=== PATIENT | female | born 1985 | race Hispanic/Latino ===

== ENCOUNTER → 2023-08-19 09:00 | Outpatient (CLI) | payer OTHER, SELFPAY ==
[2023-08-19 09:59] LABS: Add Manual Diff / Slide Review NO; Basophils Absolute Auto 100 /uL (0-100); Basophils Percent Auto 0.8 % (0-2); Eosinophils Absolute Auto 200 /uL (0-450); Eosinophils Percent Auto 1.8 % (2-4); Hematocrit 39.5 % (36-46); Hemoglobin 12.9 g/dL (12.0-16.0); Lymphocytes Absolute Auto 2300 /uL (1100-4500); Lymphocytes Percent Auto 26.1 % (25-40); Mean Corpuscular HGB Conc 32.5 % (30-36); Mean Corpuscular Hemoglobin 26.3 PG (26-34); Mean Corpuscular Volume 80.7 fL (80-100); Monocytes Absolute Auto 600 /uL (0-900); Monocytes Percent Auto 6.5 % (3-14); Neutrophils Absolute Auto 5800 /uL (1500-7000); Neutrophils Percent Auto 64.8 % (50-75); Platelet Count 351 X10^3/uL (150-400); Red Cell Distribution Width 14.3 % (11.6-14.8); White Blood Cell Count 8.9 X10^3/uL (4.5-11.0)
[2023-08-19 10:10] LABS: Hemoglobin A1C% w Est Avg Glu 5.6 % (4.0-6.0)
[2023-08-19 10:15] LABS: HEMOLYSIS < 15 (0-50); Iron 80 ug/dL (37-170)
[2023-08-19 10:19] LABS: Alanine Aminotransferase 21 IU/L (<35); Albumin 4.4 g/dL (3.5-5.0); Albumin Globulin Ratio 1.2 (1.0-2.8); Alkaline Phosphatase 80 U/L (38-126); Aspartate Aminotransferase 21 IU/L (14-36); BUN Creatinine Ratio 19.7 (6-22); Bilirubin Total 0.5 mg/dL (0.2-1.3); Blood Urea Nitrogen 12 mg/dL (7-17); Calcium 9.2 mg/dL (8.4-10.2); Carbon Dioxide 27 mmol/L (22-32); Chloride 105 mmol/L (98-107); Cholesterol 130 mg/dL (140-199); Estimated Glomerular Filt Rate > 60 mL/min (>60); Globulin 3.6 g/dL (1.7-4.1); Glucose 87 mg/dL (70-100); HDL Cholesterol 37 mg/dL (40-60); HEMOLYSIS < 15 (0-50); LDL Cholesterol Calculated 74 mg/dL (<100); Potassium 3.9 mmol/L (3.4-5.1); Sodium 138 mmol/L (137-145); Triglycerides 95 mg/dL (35-150)
[2023-08-19 10:26] LABS: Percent Iron Saturation 23 % (15-50); Total Iron Binding Capacity 348 ug/dL (265-497); Transferrin 269 mg/dL (206-381)
== END ==
PROVIDERS: PCP Family Medicine; Referring Provider Family Medicine; Visit Provider Family Medicine
DX: Z00.00 Encounter for general adult medical examination without abnormal findings (principal); E66.01 Morbid (severe) obesity due to excess calories; R53.83 Other fatigue; Z87.59 Personal history of other complications of pregnancy, childbirth and the puerperium; Z63.79 Other stressful life events affecting family and household; Z13.220 Encounter for screening for lipoid disorders; G47.00 Insomnia, unspecified; N92.6 Irregular menstruation, unspecified; Z72.821 Inadequate sleep hygiene
CPT/HCPCS: 36415; 80053; 80061; 83036; 83540; 83550; 85025

== ENCOUNTER → 2023-08-24 11:38 | Outpatient (CLI) | payer OTHER, SELFPAY ==
--- NOTE | 2023-08-24 11:38 | DI.RAD.S_ITS ---
PROCEDURE: XR CHEST 2V INDICATIONS: cough TECHNIQUE: 2 views of the chest were acquired. COMPARISON: None. FINDINGS: Surgical changes and devices: None. Lungs and pleura: Lungs are clear. No pleural effusions or pneumothorax. Mediastinum: Mediastinal contours are normal. Heart size is normal. Bones and chest wall: No suspicious bony abnormalities. Soft tissues appear unremarkable. IMPRESSION: No acute cardiopulmonary pathology. Dictated by: Jean Paul Covarrubias M.D. on 08/24/2023 at 16:34 Approved by: Jean Paul Covarrubias M.D. on 08/24/2023 at 16:34
== END ==
PROVIDERS: PCP Family Medicine; Referring Provider Nurse Practitioner Family; Visit Provider Nurse Practitioner Family
DX: R05.9 Cough, unspecified (principal)
CPT/HCPCS: 71046

== ENCOUNTER → 2023-10-13 09:46 | Outpatient (CLI) | payer OTHER, SELFPAY ==
--- NOTE | 2023-10-13 09:47 | DI.RAD.S_ITS ---
PROCEDURE: FL BARIUM SWALLOW INDICATIONS: possible GERD; chest pain/pressure COMPARISON: [facility], CR, XR CHEST 2V, 08/24/2023, 10:45. FINDINGS: Function: There is normal esophageal peristalsis. No elicited gastroesophageal reflux. There is normal transit of a calibrated barium tablet through the esophagus into the stomach. Morphology: Air-contrast images demonstrate normal mucosal morphology. Single contrast views show no esophageal strictures, extrinsic mass effects, or diverticula. Limited images of the stomach demonstrate normal appearance. IMPRESSION: 1. Normal esophagram. No gastroesophageal reflux was elicited joint exam. Dictated by: Halina Barclay M.D. on 10/13/2023 at 14:41 Approved by: Halina Barclay M.D. on 10/13/2023 at 14:42
== END ==
LOC: RAD 09:47
PROVIDERS: PCP Family Medicine; Referring Provider Physician Assistant; Visit Provider Physician Assistant
DX: K21.9 Gastro-esophageal reflux disease without esophagitis (principal); R07.9 Chest pain, unspecified
CPT/HCPCS: 74220

== ENCOUNTER → 2023-11-16 09:22 | Outpatient (CLI) | payer OTHER, SELFPAY ==
--- NOTE | 2023-11-16 09:23 | DI.MG.S_ITS ---
BILATERAL DIGITAL SCREENING MAMMOGRAM 3D/2D WITH CAD: 11/16/2023 CLINICAL: Routine screening. Baseline exam. No prior exams were available for comparison. Both breasts are almost entirely fatty (category a/<25% glandular tissue). Current study was also evaluated with a Computer Aided Detection (CAD) system. No significant masses, calcifications, or other findings are seen in either breast. IMPRESSION: NEGATIVE There is no mammographic evidence of malignancy. A 1 year screening mammogram is recommended. Based on the Tyrer Cuzick model (a risk assessment model) the patient's lifetime risk is 7.5% and her 10 year risk is 0.9%. According to the ACR, ACS, and NCCN guidelines, an annual breast MRI exam along with mammogram is recommended if the patient's lifetime risk is 20% or greater. This exam was interpreted at Station ID: [id number]. NOTE: For mammograms, a report in lay terms will be sent to the patient. Approximately 15% of breast malignancies will not be visualized mammographically. In the management of a palpable breast mass, a negative mammogram must not discourage biopsy of a clinically suspicious lesion. Electronically Signed By: Lilliana Sullivan M.D., Ph.D. julio [email or web address]/[email or web address]:11/17/2023 08:18:50 letter sent: Normal Exam ACR BI-RADS Category 1: Negative [id number]
== END ==
PROVIDERS: PCP Family Medicine; Referring Provider Family Medicine; Visit Provider Family Medicine
DX: Z12.31 Encounter for screening mammogram for malignant neoplasm of breast (principal); R92.313 Mammographic fatty tissue density, bilateral breasts
CPT/HCPCS: 77063; 77067

== ENCOUNTER → 2024-03-23 10:29 | Outpatient (CLI) | payer OTHER, SELFPAY ==
--- NOTE | 2024-03-23 10:30 | DI.RAD.S_ITS ---
PROCEDURE: XR KNEE LT 3V INDICATIONS: Left knee pain, instability TECHNIQUE: 3 views of the knee were acquired. COMPARISON: None. FINDINGS: Bones: No fractures or dislocations. No suspicious bony lesions. Tricompartmental degenerative changes. Soft tissues: No joint effusion. No suspicious soft tissue calcifications. IMPRESSION: No acute bony abnormality or significant effusion. Tricompartmental degenerative changes. If there is persistent clinical concern for internal soft tissue derangement, consider further evaluation with MRI. Dictated by: Carlos Maxwell M.D. on 03/23/2024 at 16:31 Approved by: Carlos Maxwell M.D. on 03/23/2024 at 16:32
== END ==
PROVIDERS: PCP Family Medicine; Referring Provider Family Medicine; Visit Provider Family Medicine
DX: M25.562 Pain in left knee (principal); M25.362 Other instability, left knee
CPT/HCPCS: 73562

== ENCOUNTER → 2024-04-02 18:40 | Outpatient (CLI) | payer OTHER, SELFPAY ==
--- NOTE | 2024-04-02 18:42 | DI.MRI.S_ITS ---
PROCEDURE: MR KNEE LT WO CON INDICATIONS: Chronic/ongoing left knee pain/instability TECHNIQUE: Noncontrast sagittal PD fast spin echo and T2 fast spin echo with fat saturation, sagittal 3-D FLASH with fat saturation; coronal T1 spin echo and PD fast spin echo with fat saturation, and axial PD fast spin echo with fat saturation through the knee. COMPARISON: None. FINDINGS: Image quality: Limited evaluation given patient large body habitus.. Menisci: Mild extrusion of the medial meniscus body. The medial meniscus body is irregular and mildly diminutive, concerning for nondisplaced tear. The lateral meniscus is unremarkable. Cruciate ligaments: The ACL and the PCL are intact. Medial structures: The medial collateral ligament appears intact. The posterior oblique ligament, semimembranosus tendon insertions, oblique popliteal ligament, and meniscocapsular junction appear intact. Visualized portions of the pes anserinus tendons appear normal. No abnormal bursal fluid. Lateral structures: The lateral collateral ligament, long and short heads of the biceps femoris tendon appear intact. The popliteus tendon appears normal; the popliteofibular ligament appears intact. The posterosuperior and anteroinferior popliteomeniscal fascicles appear intact. The arcuate and fabellofibular ligaments appear intact, on either side of the lateral inferior geniculate artery. Iliotibial band appears normal. Anterior structures: The quadriceps and patellar tendons appear intact. Patellar alignment is normal. No femoral trochlear dysplasia or ventral trochlear prominence. No edema in the infrapatellar fat pad. Bones and cartilage: Cartilage of the patellofemoral compartment is well maintained. In the medial compartment, there is mild chondral irregularity in the nonweightbearing portion of the medial femoral condyle, with mild subchondral marrow edema. Cartilage of the lateral compartment is well maintained. No acute fracture. Joint space: Trace knee effusion. Trace popliteal cyst. Popliteal vasculature is unremarkable. Mild subcutaneous edema in the anterior knee, superficial to the lateral patellofemoral ligament. No intra-articular body. IMPRESSION: 1. Limited evaluation given patient large body habitus. 2. Diminutive appearance and irregular contour of the medial meniscus body, concerning for nondisplaced tear. Mild extrusion of the medial meniscus body. 3. Mild chondrosis with mild marrow edema of the medial compartment. Dictated by: Johana Nguyen M.D. on 04/03/2024 at 10:35 Approved by: Johana Nguyen M.D. on 04/03/2024 at 10:46
== END ==
LOC: MRI 18:41
PROVIDERS: PCP Family Medicine; Referring Provider Family Medicine; Visit Provider Family Medicine
DX: M94.262 Chondromalacia, left knee (principal); M25.362 Other instability, left knee; E66.01 Morbid (severe) obesity due to excess calories; M25.562 Pain in left knee; Z68.43 Body mass index [BMI] 50.0-59.9, adult
CPT/HCPCS: 73721